=== PATIENT | male | born 1960 | race Caucasian/White ===

== ENCOUNTER 2022-08-21 09:54 | Emergency (ER) | payer MEDICAID ==
[~2022-08-21] VITALS: Ht 182.9 cm; Wt 75.2 kg
[2022-08-21 10:48] VITALS: BP 98/58
== END 2022-08-21 13:05 | disposition left against medical advice (07) ==
LOC: ER 09:54
DX: R10.2 Pelvic and perineal pain (principal); Z53.21 Procedure and treatment not carried out due to patient leaving prior to being seen by health care provider
CPT/HCPCS: 93926